=== PATIENT | male | born 1970 | race Caucasian/White ===

== ENCOUNTER 2017-01-18 10:00 | Inpatient (IN) | payer BC ==
[2017-01-14 15:41] VITALS: BP 148/81
[~2017-01-18] VITALS: Ht 172.7 cm; Wt 69.4 kg
[~2017-01-18 10:00] MED LIST: BACITRACIN 50,000 UNIT ONE; BUPIVACAINE/PF 0.5% ONE; DIAZ10TA4 PO; DULO60CA7 PO; EPINEPHRINE 1 MG/ML, 1ML ONE; ESZO3TAB28 PO; FENTANYL PF 100 MCG/2ML ONE; HYDR-3307 PO; HYDROmorphone 1 MG/ML, 1ML ONE; LANS30TA6 PO; MIDAZOLAM 1 MG/ML, 2ML ONE; THROMBIN 20,000 UNIT VIAL TP ONE; VANCOMYCIN 1,000 MG ONE; VANCOMYCIN PMX 1GM/200ML 200 ML IV STA
[2017-01-18] MEDS ORDERED: LACTATED RINGERS 1,000 ML IV SCH ×2 (11:56→20:30)
[2017-01-18] MEDS ORDERED: LIDOCAINE 1%, 2ML SQ PRN (12:00)
[2017-01-18] MEDS ORDERED: LIDOCAINE 1%, 2ML ONE (12:00)
[2017-01-18] MEDS ORDERED: SUCCINYLCHOLINE 20 MG/ML, 10ML ONE (13:57)
[2017-01-18] MEDS ORDERED: ONDANSETRON 2MG/ML, 2ML ONE ×2 (13:57→17:29)
[2017-01-18] MEDS ORDERED: ROCURONIUM 10 MG/ML ONE (13:57)
[2017-01-18] MEDS ORDERED: PROPOFOL 10 MG/ML, 20ML ONE (13:57)
[2017-01-18] MEDS ORDERED: CEFAZOLIN 1,000 MG ONE (13:57)
[2017-01-18] MEDS ORDERED: hydrALAzine 20 MG/ML, 1ML ONE (13:57)
[2017-01-18] MEDS ORDERED: DEXAMETHASONE 4 MG/ML, 1ML ONE (13:57)
[2017-01-18] MEDS ORDERED: METOCLOPRAMIDE 5 MG/ML, 2ML IV PRN ×2 (14:30→15:00)
[2017-01-18] MEDS ORDERED: FENTANYL PF 100 MCG/2ML IV PRN ×2 (14:30→15:00)
[2017-01-18] MEDS ORDERED: OXYcodone 5 MG/5 ML ORAL.SOL UDC PO PRN ×2 (14:30→15:00)
[2017-01-18] MEDS ORDERED: LABETALOL 5MG/ML, 20ML IV PRN ×3 (14:30→20:00)
[2017-01-18] MEDS ORDERED: HYDROmorphone 1 MG/ML, 1ML IV PRN (14:30)
[2017-01-18] MEDS ORDERED: ACETAMINOPHEN 325 MG TABLET PO PRN ×2 (14:30→15:00)
[2017-01-18] MEDS ORDERED: hydrALAzine 20 MG/ML, 1ML IV PRN ×2 (14:30→15:00)
[2017-01-18] MEDS ORDERED: ONDANSETRON 2MG/ML, 2ML IVPush PRN ×2 (14:30→15:00)
[2017-01-18] MEDS ORDERED: TRANEXAMIC ACID 100 MG/ML, 10ML ONE ×2 (14:30)
[2017-01-18] MEDS ORDERED: MEPERIDINE/PF 50 MG/ML ONE (17:15)
[2017-01-18] MEDS: MEPERIDINE/PF 25MG/0.5ML IVPush PRN ×2 (17:16→17:30)
[2017-01-18] MEDS ORDERED: METOCLOPRAMIDE 5 MG/ML, 2ML ONE (17:51)
[2017-01-18] MEDS ORDERED: PROMETHAZINE 25 MG/ML, 1ML ONE (17:51)
[2017-01-18] MEDS ORDERED: PROMETHAZINE 25 MG/ML, 1ML IM PRN ×2 (18:00→20:00)
[2017-01-18] MEDS ORDERED: HYDROmorphone 2 MG/ML, 1ML ONE ×2 (18:20→19:16)
[2017-01-18] MEDS: HYDROmorphone 1 MG/ML, 1ML IV PRN ×8 (18:22→19:26)
[2017-01-18] MEDS ORDERED: DEXAMETHASONE 4 MG/ML, 5ML IV PRN (20:00)
[2017-01-18] MEDS ORDERED: morphine SULFATE 10 MG/ML, 1ML IV PRN (20:00)
[2017-01-18] MEDS ORDERED: KETOROLAC 30 MG/1 ML IV PRN (20:00)
[2017-01-18] MEDS ORDERED: DIPHENHYDRAMINE 50 MG/ML, 1ML IM PRN (20:00)
[2017-01-18] MEDS ORDERED: MAGNESIUM HYDROXIDE 8%, 30ML UDC PO PRN (20:00)
[2017-01-18] MEDS ORDERED: DIPHENHYDRAMINE 50 MG/ML, 1ML IVPush PRN (20:00)
[2017-01-18] MEDS ORDERED: BISACODYL 10 MG SUPP PR PRN (20:00)
[2017-01-18] MEDS ORDERED: DIPHENHYDRAMINE 50 MG CAPSULE PO PRN (20:00)
[2017-01-18] MEDS: D5%-0.9% NACL+KCL 20MEQ 1,000 ML IV SCH (20:18)
[2017-01-18] MEDS ORDERED: ACETAMINOPHEN 650 MG SUPP PR PRN (20:30)
[2017-01-18] MEDS ORDERED: DIAZEPAM 5 MG/ML, 2ML IV PRN (20:30)
[2017-01-18] MEDS ORDERED: ACETAMINOPHEN 500 MG TABLET PO PRN (20:30)
[2017-01-18] MEDS ORDERED: ZOLPIDEM 5MG TABLET PO PRN (21:00)
[2017-01-18] MEDS: ONDANSETRON 2MG/ML, 2ML IV PRN (22:57)
[2017-01-19 00:18] VITALS: BP 106/72
[2017-01-19 03:30] VITALS: BP 103/57
[2017-01-19] MEDS: OXYcodone IR 5MG TABLET PO PRN ×7 (03:32→22:26)
[2017-01-19] MEDS: D5%-0.9% NACL+KCL 20MEQ 1,000 ML IV SCH ×2 (06:21→15:11)
[2017-01-19 07:40] VITALS: BP 108/60
[2017-01-19] MEDS: PANTOPROZOLE 40MG TABLET PO SCH (07:46)
[2017-01-19] MEDS: DULOXETINE 30 MG CAPSULE.DR PO SCH (07:46)
[2017-01-19] MEDS: SENNA/DOCUSATE TABLET PO SCH (07:46)
[2017-01-19] MEDS: DIAZEPAM 10 MG TABLET PO PRN ×3 (07:46→23:37)
[2017-01-19] MEDS: ONDANSETRON 2MG/ML, 2ML IV PRN (12:02)
[2017-01-19 13:20] VITALS: BP 106/62
[2017-01-19] MEDS ORDERED: ALBUTEROL SULFATE 2.5 MG/3 ML ONE (17:13)
[2017-01-19] MEDS ORDERED: ALBUTEROL SULFATE 2.5 MG/3 ML NPPB PRN (17:30)
[2017-01-19 20:32] VITALS: BP 114/61
[2017-01-20] MEDS: D5%-0.9% NACL+KCL 20MEQ 1,000 ML IV SCH ×3 (02:00→21:13)
[2017-01-20] MEDS: OXYcodone IR 5MG TABLET PO PRN ×7 (02:13→22:35)
[2017-01-20 02:17] VITALS: BP 125/72
[2017-01-20 05:13] LABS: HEMATOCRIT 36.5 % (39.2-51.8); HEMOGLOBIN 12.3 g/dL (13.7-18.0); WHITE BLOOD COUNT 19.5 x10^3/uL (3.4-10)
[2017-01-20 07:44] VITALS: BP 123/78
[2017-01-20] MEDS: SENNA/DOCUSATE TABLET PO SCH (07:52)
[2017-01-20] MEDS: PANTOPROZOLE 40MG TABLET PO SCH (07:52)
[2017-01-20] MEDS: DIAZEPAM 10 MG TABLET PO PRN ×2 (07:52→14:50)
[2017-01-20] MEDS: DULOXETINE 30 MG CAPSULE.DR PO SCH (07:52)
[2017-01-20] MEDS ORDERED: CYCLOBENZAPRINE 10 MG TABLET PO ONE (13:00)
[2017-01-20 13:34] VITALS: BP 136/69
[2017-01-20] MEDS ORDERED: CEPH-368 PO (14:00)
[2017-01-20] MEDS ORDERED: CYCL-259 PO (14:01)
[2017-01-20] MEDS ORDERED: OXYC20TA2 PO (14:02)
[2017-01-20 18:32] VITALS: BP 149/72
[2017-01-20] MEDS: CYCLOBENZAPRINE 10 MG TABLET PO PRN (22:31)
[2017-01-21] MEDS: OXYcodone IR 5MG TABLET PO PRN ×6 (01:28→18:33)
[2017-01-21 01:32] VITALS: BP 144/71
[2017-01-21 06:01] LABS: HEMATOCRIT 37.8 % (39.2-51.8); HEMOGLOBIN 12.7 g/dL (13.7-18.0); WHITE BLOOD COUNT 17.6 x10^3/uL (3.4-10)
[2017-01-21] MEDS: CYCLOBENZAPRINE 10 MG TABLET PO PRN ×2 (06:20→15:08)
[2017-01-21] MEDS: D5%-0.9% NACL+KCL 20MEQ 1,000 ML IV SCH ×2 (08:00→18:00)
[2017-01-21] MEDS: PANTOPROZOLE 40MG TABLET PO SCH (08:08)
[2017-01-21] MEDS: DULOXETINE 30 MG CAPSULE.DR PO SCH (08:08)
[2017-01-21] MEDS: SENNA/DOCUSATE TABLET PO SCH (08:08)
[2017-01-21] MEDS ORDERED: DIAZEPAM 5 MG TABLET ONE ×2 (08:15→17:07)
[2017-01-21] MEDS: DIAZEPAM 10 MG TABLET PO PRN ×2 (08:16→17:08)
[2017-01-21 08:45] VITALS: BP 142/66
[2017-01-21 14:07] VITALS: BP 140/69
[2017-01-21] MEDS ORDERED: SENN-1 PO (16:46)
[2017-01-21] MEDS ORDERED: ACET-76 PO (16:47)
[2017-01-21] MEDS ORDERED: DIPH25CA61 PO (16:49)
[2017-01-21 18:34] VITALS: BP 127/71
== END 2017-01-21 19:11 | disposition home or self-care (01) | DRG 460 ==
LOC: ORIP 10:54 → 4NOR 19:44
PROVIDERS: ADMIT Orthopaedic Surgery Orthopaedic Surgery of the Spine; ATTEND Orthopaedic Surgery Orthopaedic Surgery of the Spine
PROC: 4A11X4G Monitoring of Peripheral Nervous Electrical Activity, Intraoperative, External Approach (ICD-10-PCS; 2017-01-18)
PROC: 0SG30AJ Fusion of Lumbosacral Joint with Interbody Fusion Device, Posterior Approach, Anterior Column, Open Approach (ICD-10-PCS; principal; 2017-01-18 10:00)
DX: M43.17 Spondylolisthesis, lumbosacral region (principal); K21.9 Gastro-esophageal reflux disease without esophagitis; M48.06 Spinal stenosis, lumbar region; M51.17 Intervertebral disc disorders with radiculopathy, lumbosacral region; M62.838 Other muscle spasm; Z98.1 Arthrodesis status; Z90.49 Acquired absence of other specified parts of digestive tract
CPT/HCPCS: 36415; 72100; 85025; 86850; 86900; 94640; C1713; J0171; J0690; J1100; J1170; J2175; J2250; J2270; J2405; J2550; J2704; J3010; J3370; J3490; C1760; C1762; C1763; C9362; J0330; J0360; J2765; J3480; J7120